=== PATIENT | male | born 1990 | race Caucasian/White ===

== ENCOUNTER 2016-11-25 00:15 | Emergency (ER) | payer SELFPAY ==
[~2016-11-25 00:15] MED LIST: IBUP600T26 PO; TRAM50 PO
[2016-11-25 00:23] VITALS: BP 124/70; PULSE 82; RESP 18; TEMP 98.2; O2SAT 97
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
[2016-11-25] MEDS ORDERED: IBUPROFEN 800 MG TAB PO ONE (01:45)
[2016-11-25] MEDS ORDERED: CEPHALEXIN MONOHYDRATE 500 MG CAP PO ONE (01:45)
[2016-11-25] MEDS ORDERED: CEPH-460 PO (01:47)
[2016-11-25] MEDS ORDERED: IBUP800T23 PO (01:47)
== END 2016-11-25 02:18 | disposition home or self-care (01) ==
LOC: NEPD 00:15
DX: S61.412A Laceration without foreign body of left hand, initial encounter (principal); Y04.0XXA Assault by unarmed brawl or fight, initial encounter; W25.XXXA Contact with sharp glass, initial encounter
CPT/HCPCS: 12002; 73120

== ENCOUNTER 2017-03-07 19:07 | Emergency (ER) | payer SELFPAY ==
[~2017-03-07] VITALS: Ht 162.6 cm; Wt 70.8 kg
[~2017-03-07 19:07] MED LIST changes: +CEPH-460 PO; -IBUP600T26 PO; +IBUP800T23 PO; -TRAM50 PO
[2017-03-07 19:14] VITALS: BP 149/101; PULSE 113; RESP 20; TEMP 99.2; O2SAT 100
[2017-03-07] MEDS ORDERED: IBUP400T20 PO (19:26)
--- NOTE | 2017-03-07 19:50 | PD ---
HPI Chief Complaint: Skin Problem Time Seen by Provider: 19:42 Travel History International Travel<30 days: No Contact w/Intl Traveler<30days: No Traveled to known affect area: No History of Present Illness HPI 26-year-old male with a four-day history of a cyst on his right anal area . He says the pain is moderate, bowel movements & sitting increased pain and nothing seems to relieve it. No radiation of pain. He has not tried sitz baths or anything [id number]. He has never had these before and denies IVDU, and any medical history. Denies fever, chills, chest pain, shortness of breath. Denies hematochezia, melena. PFSH Past Medical History Asthma: Yes Immunizations Current: No Tetanus Vaccination: < 5 Years Influenza Vaccination: No Past Surgical History Other Surgery: Yes (Left hand) Social History Alcohol Use: Yes (OCC) Tobacco Use: Yes (2 packs a week) Substance Use: No Allergies-Medications (Allergen,Severity, Reaction): Coded Allergies: No Known Allergies (Unverified , 03/07/17) Reported Meds & Prescriptions Reported Meds & Active Scripts Active Bactrim DS (Sulfamethoxazole-Trimethoprim) 800-160 Mg Tab 1 Tab PO BID 10 Days Reported Ibuprofen 400 Mg Tab 400 Mg PO Q6H PRN Review of Systems Except as stated in HPI: all other systems reviewed are Neg Physical Exam Narrative GENERAL: Well-nourished, well-developed patient. SKIN: Focused skin assessment warm/dry. HEAD: Normocephalic. EYES: No scleral icterus. No injection or drainage. NECK: Supple, trachea midline. No JVD or lymphadenopathy. CARDIOVASCULAR: Regular rate and rhythm without murmurs, gallops, or rubs. RESPIRATORY: Breath sounds equal bilaterally. No accessory muscle use. GASTROINTESTINAL: Abdomen soft, non-tender, nondistended. Anus: 2cm x 1cm area of erythema with central fluctuance. no expression of fluid with palpation. no lymphadenopathic spread. rectal exam demonstrated good tone without sphincter involvement MUSCULOSKELETAL: No cyanosis, or edema. BACK: Nontender without obvious deformity. No CVA tenderness. Data Data Last Documented VS Vital Signs Date Time Temp Pulse Resp B/P (MAP) Pulse Ox O2 Delivery O2 Flow Rate FiO2 03/07/17 19:14 99.2 113 20 149/101 (117) 100 Orders Orders Acetamin-Hydrocod 325-5 Mg ([place] 5-325 (03/07/17 21:00) MDM Medical Decision Making Medical Screen Exam Complete: Yes Emergency Medical Condition: Yes Differential Diagnosis Perianal abscess versus perirectal abscess versus skin abscess Narrative Course 26-year-old male with an abscess on his right anal area. Physical exam demonstrated 2 cm erythema and fluctuance. Rectal exam demonstrated no obvious involvement in the sphincter. Hemoccult- negative Patient given hydrocodone for pain relief during the procedure. I&D performed culture taken No evidence of cellulitis. Advised patient to use sitz baths, antibiotics as prescribed, and return to the emergency department for further treatment and evaluation if infection developed Procedures Procedure Narrative INCISION AND DRAINAGE OF ABSCESS: The area was prepped and was sterilely draped. A subcutaneous wheal 1 % Xylocaine without epi with a total number to mL was used to anesthetize the area properly. A number 11 scalpel was used to make a 5 mm x 2 mm incision across the area of the abscess. The abscess was drained, complex loculations were broken down, and irrigated with normal saline. Depth was approximately 1cm. Cultures were obtained. Quarter inch iodoform packing was placed in the wound. Sterile dressing applied. Patient advised to have packing removed in two days. HemaPrompt Point of Care Internal Pos. & Neg. Controls: Passed Fecal Specimen Occult Blood: Negative Diagnosis Primary Impression: Perianal abscess Referrals: [facility] Primary Care Physician Additional Instructions: Use sitz baths one to 2 times a day Keep area clean and dry All antibiotics as prescribed Follow-up with your primary care physician Scripts Sulfamethoxazole-Trimethoprim (Bactrim DS) 800-160 Mg Tab 1 TAB PO BID for Infection for 10 Days, #20 TAB 0 Refills Prov: Grace Curran MD 03/07/17 Disposition: 01 DISCHARGE HOME Condition: Stable Elba Askew Mar 07, 2017 19:50
[2017-03-07] MEDS ORDERED: AUGM875T3 PO (20:21)
[2017-03-07] MEDS ORDERED: BACT800T5 PO (20:56)
[2017-03-07] MEDS ORDERED: ACETAMINOPHEN/HYDROcodone 325 MG/5 MG TAB PO ONE (21:00)
== END 2017-03-07 21:52 | disposition home or self-care (01) ==
LOC: PHEFT 19:07
DX: K61.0 Anal abscess (principal); J45.909 Unspecified asthma, uncomplicated; F17.210 Nicotine dependence, cigarettes, uncomplicated
CPT/HCPCS: 10061

== ENCOUNTER 2017-11-01 17:52 | Inpatient (IN) | payer SELFPAY ==
[~2017-11-01] VITALS: Ht 162.6 cm; Wt 80.6 kg
[~2017-11-01 17:52] MED LIST changes: +BACT800T5 PO; -CEPH-460 PO; +IBUP1TAB5 PO; -IBUP800T23 PO
[2017-11-01 18:03] VITALS: BP 139/82; PULSE 78; RESP 20; TEMP 98.4; O2SAT 98
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
[2017-11-01] MEDS ORDERED: ACETAMINOPHEN/HYDROcodone 325 MG/5 MG TAB PO PRN (21:15)
[2017-11-01] MEDS ORDERED: SODIUM CHLORIDE 0.9% FLUSH 10 ML FLUSH IV FLUSH PRN (21:15)
[2017-11-01] MEDS ORDERED: MAGNESIUM HYDROXIDE SUSP 30 ML CUP PO PRN (21:15)
[2017-11-01] MEDS ORDERED: SENNOSIDES 8.6 MG TAB PO PRN (21:15)
[2017-11-01] MEDS ORDERED: ACETAMINOPHEN 325 MG TAB PO PRN (21:15)
[2017-11-01] MEDS ORDERED: METOCLOPRAMIDE HCL 10 MG/2 ML VIAL IV PUSH PRN (21:15)
[2017-11-01] MEDS ORDERED: MORPHINE SULFATE 2 MG/ML SYRINGE IV PUSH PRN (21:15)
[2017-11-01] MEDS ORDERED: LACTULOSE SYRUP 20 GM/30 ML CUP PO PRN (21:15)
[2017-11-01] MEDS ORDERED: BISACODYL 10 MG SUPP RECTAL PRN (21:15)
[2017-11-01] MEDS: SODIUM CHLOR 0.9% 1000 ML INJ 1,000 ML IV SCH (22:02)
[2017-11-01 22:30] VITALS: BP 139/72; PULSE 63; RESP 20; O2SAT 98
[2017-11-01 22:37] LABS: AUTOMATED NEUTROPHIL # 6.2 TH/MM3 (1.8-7.7); BASOPHIL # 0.1 TH/MM3 (0-0.2); BASOPHIL % 0.6 % (0.0-2.0); EOSINOPHIL # 0.1 TH/MM3 (0-0.4); EOSINOPHIL % 1.3 % (0.0-4.0); HEMATOCRIT 41.2 % (39.0-51.0); HEMOGLOBIN 14.4 GM/DL (13.0-17.0); LYMPH % 21.5 % (9.0-44.0); LYMPHOCYTE # 2.1 TH/MM3 (1.0-4.8); MEAN CELL VOLUME 87.4 FL (80.0-100.0); MEAN CORPUSCULAR HEMOGLOBIN 30.5 PG (27.0-34.0); MEAN CORPUSCULAR HGB CONC 34.9 % (32.0-36.0); MEAN PLATELET VOLUME 8.8 FL (7.0-11.0); MONO % 12.4 % (0.0-8.0); MONOCYTE # 1.2 TH/MM3 (0-0.9); NEUT % 64.2 % (16.0-70.0); PLATELET COUNT 196 TH/MM3 (150-450); RED BLOOD COUNT 4.71 MIL/MM3 (4.50-5.90); RED CELL DISTRIBUTION WIDTH 12.6 % (11.6-17.2); WHITE BLOOD COUNT 9.7 TH/MM3 (4.0-11.0)
[2017-11-01 22:43] LABS: CHLORIDE 103 MEQ/L (98-107); SODIUM (NA) 137 MEQ/L (136-145)
[2017-11-01 22:47] LABS: CALCIUM 8.8 MG/DL (8.5-10.1); INTERNATIONAL NORMALIZED RATIO 1.1 RATIO; PROTHROMBIN TIME - PATIENT 10.8 SEC (9.8-11.6)
[2017-11-01 22:48] LABS: ALBUMIN 4.4 GM/DL (3.4-5.0); BICARBONATE 26.7 MEQ/L (21.0-32.0); BLOOD UREA NITROGEN 7 MG/DL (7-18); GLUCOSE,RANDOM 83 MG/DL (74-106)
[2017-11-01 22:51] LABS: ALT (GPT) 25 U/L (12-78); AST (GOT) 26 U/L (15-37); GLOMERULAR FILTRATION RATE 103 ML/MIN (>89)
[2017-11-01 22:52] LABS: TOTAL BILIRUBIN ADULT 1.6 MG/DL (0.2-1.0); TOTAL PROTEIN 8.1 GM/DL (6.4-8.2)
[2017-11-01 22:54] LABS: ALKALINE PHOSPHATASE 79 U/L (45-117)
[2017-11-02 00:30] VITALS: BP 145/72; PULSE 79; RESP 18; TEMP 98.2; O2SAT 98
[2017-11-02 01:13] VITALS: BP 137/84; PULSE 65; RESP 18; TEMP 98.4; O2SAT 98
[2017-11-02] MEDS: MORPHINE SULFATE 4 MG/ML INJ IV PRN ×2 (01:27→05:01)
[2017-11-02] MEDS ORDERED: CHLORHEXIDINE GLUCONATE 2 % 1 PACK (2 CLOTHS) TOPICAL PRN (01:45)
[2017-11-02] MEDS ORDERED: LACTATED RINGER'S 1000 ML IV PRN (01:45)
[2017-11-02] MEDS ORDERED: SODIUM CHLORID 0.9% 500 ML IV PRN (01:45)
[2017-11-02] MEDS ORDERED: POVIDONE IODINE 5% (ANTISEPSIS KIT) 4 APPLICATIONS EACH NARE PRN (01:45)
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
[2017-11-02 05:00] VITALS: BP 140/63; PULSE 67; RESP 18; TEMP 98; O2SAT 98
[2017-11-02] MEDS ORDERED: ACETAMINOPHEN 1000 MG/100 ML 100 ML IV ONE (06:58)
[2017-11-02] MEDS: SODIUM CHLOR 0.9% 1000 ML INJ 1,000 ML IV SCH ×2 (07:04→17:04)
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
[2017-11-02] MEDS ORDERED: WALKER WHEELS/F1 MIS (07:16)
[2017-11-02] MEDS ORDERED: HYDR-3583 PO (07:16)
[2017-11-02] MEDS ORDERED: VANCOMYCIN HCL 1000 MG VIAL ONE (07:18)
[2017-11-02] MEDS ORDERED: GENTAMICIN SULFATE 80 MG/2 ML VIAL ONE (07:18)
[2017-11-02] MEDS ORDERED: SODIUM CHLOR 0.9% 250 ML INJ 250 ML ONE (07:18)
[2017-11-02] MEDS ORDERED: ceFAZolin INJ 1,000 MG VIAL ONE (07:18)
[2017-11-02] MEDS ORDERED: SODIUM CHLORIDE 0.9% FLUSH 10 ML FLUSH IV FLUSH SCH (09:00)
[2017-11-02] MEDS ORDERED: DOCUSATE SODIUM 50 MG/SENNA 8.6 MG TAB PO SCH (09:00)
[2017-11-02] MEDS ORDERED: MORPHINE SULFATE 4 MG/ML INJ IV PUSH PRN (09:30)
[2017-11-02] MEDS ORDERED: Post-op Orders (for Pharmacy) XX ONE (09:30)
--- NOTE | 2017-11-02 09:31 | PD.OP ---
cc: Oneil Palm MD Operative Report Date of Surgery: Nov 02, 2017 Preoperative Diagnosis: Displaced left ankle bimalleolar fracture Postoperative Diagnosis: Procedure: Open reduction to fixation left ankle bimalleolar fracture Anesthesia: General Surgeon: Oneil Palm Transportation Museum Helper(s): CHANDU Noble PA-C The surgical procedure was assisted by my physician child and youth program assistant. My P.A. presence was necessary throughout this case for the manipulation and positioning of the surgical extremity. My P.A. was assisting me throughout the duration of this procedure. The skill set of a physician child and youth program assistant was medically necessary to complete this procedure. During the surgical case the surgical coder was working at the back table and the physician child and youth program assistant was directly assisting me. Operation and Findings: Implants used : ITS Patient was seen and evaluated preoperatively and found to have a displaced left ankle fracture. Informed consent was obtained after a detailed discussion of risk and benefits of surgery. The operative site was marked. Patient was brought to the OR, placed on the OR table, and given IV sedation and general endotracheal anesthesia. IV antibiotics were given preoperatively. A timeout procedure was performed. The operative leg was prepped with alcohol followed by Hibiclens and draped in the usual sterile fashion. Attention was turned towards the distal fibula. A four-inch incision was made over the distal fibula. The subcutaneous tissue was dissected with Bovie. The fracture site was visualized. The fracture site was cleaned with curets. The fracture was now reduced. The fracture keyed into anatomic alignment. K-wires were used to h old provisional fixation. 2.7 lag screws were placed to compress fracture. A plate was selected and contoured to fit the distal fibula. The plate was provisionally held to bone with K-wires. 2.7 cortical screws were used to compress the plate to bone. Multiple screws were placed above and below the fracture. Next attention was turned towards the medial malleolus. The medial malleolus supposed through a 3 cm incision. Saphenous vein was retracted. Fracture was visualized. Fracture was cleaned with curettes. Fracture was now reduced and keyed into anatomic alignment. K wires were used to hold provisional fixation. A guidepin for the 4.0 cannulated screws was placed in a retrograde fashion across the fracture. This fragment was relatively small so only one screw was utilized. Fluoroscopy was used to confirm guidepin placement. Cannulated drill was placed over the guidepin. 2 appropriate length screws were now placed. Good compression was applied. Fluoroscopy confirmed well aligned fracture with well-placed hardware. Next, attention was turned to the syndesmosis. The syndesmosis was stressed. There was no widening of the syndesmosis with external rotation of the ankle. Incisions were thoroughly irrigated. The subcutaneous tissue was closed with 3- 0 Vicryl and the skin was closed with 3-0 nylon. Sterile dressings were applied. A well molded well-padded splint was applied. The patient was transferred to Recovery in stable condition. Needle and sponge counts were correct. Oneil Palm MD Nov 02, 2017 09:31
[2017-11-02] MEDS ORDERED: DO NOT ADM ANY ANTICOAGULANT DRUGS PRN (09:57)
[2017-11-02] MEDS ORDERED: ONDANSETRON ODT 4 MG TAB PO PRN (10:00)
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
[2017-11-02] MEDS ORDERED: MIDAZOLAM HCL 2 MG/2 ML VIAL ONE (10:05)
[2017-11-02] MEDS: ACETAMINOPHEN/HYDROcodone 325 MG/7.5 MG TAB PO PRN ×3 (10:54→16:23)
[2017-11-02 10:58] VITALS: BP 133/97; PULSE 81; RESP 18; TEMP 96.5; O2SAT 96
--- NOTE | 2017-11-02 12:05 | HHI.PR ---
Subjective Remarks Still with a lot of pain in the left lower leg just had surgery. Otherwise no other complaints at this time. Objective Vitals Vital Signs Date Time Temp Pulse Resp B/P (MAP) Pulse Ox O2 Delivery O2 Flow Rate FiO2 11/02/17 10:58 96.5 81 18 133/97 (109) 96 11/02/17 10:23 74 17 109/55 (73) 92 Room Air 11/02/17 10:15 77 14 111/56 (74) 93 11/02/17 10:00 82 19 106/53 (70) 100 Nasal Cannula 4 11/02/17 09:58 97.8 86 19 106/52 (70) 98 Nasal Cannula 4 11/02/17 05:00 98.0 67 18 140/63 (88) 98 11/02/17 01:13 98.4 65 18 137/84 (101) 98 11/02/17 00:50 11/02/17 00:30 98.2 79 18 145/72 (96) 98 Room Air 11/02/17 00:30 98 Room Air 11/01/17 22:30 63 20 139/72 (94) 98 Room Air 11/01/17 18:21 98 11/01/17 18:03 98.4 78 20 139/82 (101) 98 I/O 11/01/17 11/01/17 11/01/17 11/02/17 11/02/17 11/02/17 07:00 15:00 23:00 07:00 15:00 23:00 Intake Total 0 ml Balance 0 ml Intake Oral 0 ml # Voids 1 # Bowel Movements 0 Result Diagram: 11/01/17222911/01/172229 Objective Remarks GENERAL: This is a well-nourished, well-developed patient, in no apparent distress. CARDIOVASCULAR: Regular rate and rhythm RESPIRATORY: Clear to auscultation. Breath sounds equal bilaterally. No wheezes , rales, or rhonchi. MUSCULOSKELETAL: Left lower extremity bandage cast in place, neurovascular intact NEURO: Alert & Oriented x4 to person, place, time, situation. A/P Problem List: (1) Ankle fracture, bimalleolar, closed ICD Code: S82.843A - Displaced bimalleolar fracture of unspecified lower leg, initial encounter for closed fracture Status: Acute Assessment and Plan 26 y/o male with no medical history presented to the ED with left ankle pain. Ankle fracture, left Ankle x ray reviewed and shows a acute displaced fracture involving the medial malleolus of the distal tibia, and acute mildly displaced oblique fracture of the left distal fibula Status post ORIF left ankle today with Dr. Wilson postoperative care , pain control, physical therapy. The patient's pain is control is able to ambulate When nonweightbearing the left lower extremity will discharge patient home later this afternoon. DVT prophylaxis: SCDs on non affected leg Discharge Planning Discharge patient to home Condition on discharge: Improved Regular Diet as tolerated Nonweightbearing left lower extremity Rx written: [place] for pain control later this afternoon Follow-up with primary care physician Follow-up with orthopedic surgery Dr. Calhoun in 2 weeks Problem Qualifiers (1) Ankle fracture, bimalleolar, closed: Qualified Codes: S82.842A - Displaced bimalleolar fracture of left lower leg, initial encounter for closed fracture Birgit Zapien MD Nov 02, 2017 12:05
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
[2017-11-02] MEDS ORDERED: ceFAZolin 2 GM PREMIX 50 ML IV SCH (16:00)
[2017-11-02 16:26] VITALS: BP 121/61; PULSE 63; RESP 17; TEMP 97.6; O2SAT 95
[2017-11-02 16:50] LABS: AUTOMATED NEUTROPHIL # 8.7 TH/MM3 (1.8-7.7); BASOPHIL % 0.1 % (0.0-2.0); EOSINOPHIL % 0.1 % (0.0-4.0); HEMOGLOBIN 14.2 GM/DL (13.0-17.0); LYMPH % 7.4 % (9.0-44.0); LYMPHOCYTE # 0.7 TH/MM3 (1.0-4.8); MEAN CELL VOLUME 87.5 FL (80.0-100.0); MEAN CORPUSCULAR HEMOGLOBIN 30.2 PG (27.0-34.0); MEAN CORPUSCULAR HGB CONC 34.5 % (32.0-36.0); MEAN PLATELET VOLUME 9.5 FL (7.0-11.0); MONO % 5.9 % (0.0-8.0); MONOCYTE # 0.6 TH/MM3 (0-0.9); NEUT % 86.5 % (16.0-70.0); PLATELET COUNT 216 TH/MM3 (150-450); RED BLOOD COUNT 4.69 MIL/MM3 (4.50-5.90); RED CELL DISTRIBUTION WIDTH 13.3 % (11.6-17.2); WHITE BLOOD COUNT 10.1 TH/MM3 (4.0-11.0)
[2017-11-02 17:09] LABS: ALBUMIN 3.7 GM/DL (3.4-5.0); AST (GOT) 26 U/L (15-37); BICARBONATE 25.9 MEQ/L (21.0-32.0); BLOOD UREA NITROGEN 10 MG/DL (7-18); CALCIUM 8.5 MG/DL (8.5-10.1); CHLORIDE 101 MEQ/L (98-107); GLOMERULAR FILTRATION RATE 103 ML/MIN (>89); GLUCOSE,RANDOM 103 MG/DL (74-106); SODIUM (NA) 135 MEQ/L (136-145)
[2017-11-02 17:11] LABS: ALT (GPT) 24 U/L (12-78)
[2017-11-02 17:13] LABS: ALKALINE PHOSPHATASE 79 U/L (45-117); TOTAL BILIRUBIN ADULT 0.9 MG/DL (0.2-1.0)
== END 2017-11-02 19:38 | disposition home or self-care (01) | DRG 494 ==
LOC: PHEFT 17:52 → PHEDA 21:03 → OBSVTOIN 21:05 → N06A 11-02 01:11
PROVIDERS: ADMIT Family Medicine; ATTEND Family Medicine
PROC: 0QSH04Z Reposition Left Tibia with Internal Fixation Device, Open Approach (ICD-10-PCS; 2017-11-02)
PROC: 0QSK04Z Reposition Left Fibula with Internal Fixation Device, Open Approach (ICD-10-PCS; principal; 2017-11-02 08:19)
DX: S82.842A Displaced bimalleolar fracture of left lower leg, initial encounter for closed fracture (principal); F17.210 Nicotine dependence, cigarettes, uncomplicated; S20.219A Contusion of unspecified front wall of thorax, initial encounter; Y09 Assault by unspecified means
CPT/HCPCS: 71045; 73600; 73610; 76000; 80053; 85025; 85610; 85730; 94150; E0113; G8987-GP; G8988-GP; J0131; J0690; J1580; J2250; J2270; J3010; J3370; J7030; J7050; J7120